=== PATIENT | female | born 1950 | race Caucasian/White ===

== ENCOUNTER 2022-01-13 07:43 | Day surgery (SDC) | payer MEDICARE ==
[2022-01-13] MEDS ORDERED: Decadron 4 MG INJ IV ONE (07:44)
[2022-01-13] MEDS ORDERED: XYLOCAINE-MPF 1% 5ML SDV IJ ONE (07:44)
[2022-01-13] MEDS ORDERED: Depo-Medrol 40 MG/ML IM ONE (07:44)
[2022-01-13] MEDS ORDERED: Marcaine Mpf 0.5% Vial 30 Ml IJ ONE (07:44)
[2022-01-13] MEDS ORDERED: DIPRIVAN 200 MG/20 ML IV ONE (08:36)
[2022-01-13] MEDS ORDERED: Lactated Ringers 1,000 ML IV ONE (09:06)
--- NOTE | 2022-01-13 09:48 | XRAY ---
Indication: Right SI joint and right piriformis injection. Intraoperative fluoroscopy provided for 20 seconds. Initial lateral digital spot image submitted for interpretation demonstrates posterior new tip projecting over the presumed right SI joint. Second digital spot image demonstrates posterior needle tip projecting over the right piriformis muscle with small amount of contrast injected for needle tip placement. Correlate with intraoperative findings/report.
--- NOTE | 2022-01-13 12:27 | XRAY ---
20 seconds of fluoroscopy was used in surgery for a right SI and right piriformis injections.
== END 2022-01-13 08:56 | disposition home or self-care (01) ==
LOC: SDC-PAIN 07:43
PROVIDERS: ATTEND Psychiatry & Neurology Pain Medicine
DX: M46.1 Sacroiliitis, not elsewhere classified (principal); M79.18 Myalgia, other site; E11.9 Type 2 diabetes mellitus without complications; Z79.899 Other long term (current) drug therapy
CPT/HCPCS: 20552; 27096; 72170; 76942; 77002; 82947; G0260; 99100; J1030; J1100; J2704; Q9966

== ENCOUNTER 2022-02-03 06:51 | Day surgery (SDC) | payer MEDICARE ==
[2022-02-03] MEDS ORDERED: LIDOCAINE HCL 2% 100 MG/5 ML IJ ONE (06:52)
[2022-02-03] MEDS ORDERED: DIPRIVAN 200 MG/20 ML IV ONE (08:39)
[2022-02-03] MEDS ORDERED: Lactated Ringers 1,000 ML IV ONE (10:15)
--- NOTE | 2022-02-03 10:51 | XRAY ---
Indication: Bilateral L4-S1 MBB. Intraoperative fluoroscopy provided for 42 seconds. Single digital spot image submitted for interpretation demonstrates posterior needle tips projecting over the expected left and right L4-S1 nerve roots. Correlate with intraoperative findings/report. Incidental partially visualized bilateral L5-S1 posterior fusion hardware.
--- NOTE | 2022-02-03 11:36 | XRAY ---
42 seconds fluoroscopy time in surgery for bilateral L4-S1 MBB.
== END 2022-02-03 09:02 | disposition home or self-care (01) ==
LOC: SDC-PAIN 06:51
PROVIDERS: ATTEND Psychiatry & Neurology Pain Medicine
DX: M47.816 Spondylosis without myelopathy or radiculopathy, lumbar region (principal); E11.9 Type 2 diabetes mellitus without complications; Z79.899 Other long term (current) drug therapy
CPT/HCPCS: 64493; 64494; 72020; 77002; 82947; J2704

== ENCOUNTER 2022-03-03 07:42 | Day surgery (SDC) | payer MEDICARE ==
[2022-03-03] MEDS ORDERED: Marcaine Mpf 0.5% Vial 30 Ml IJ ONE (07:43)
[2022-03-03] MEDS ORDERED: Lactated Ringers 1,000 ML IV ONE (15:05)
[2022-03-03] MEDS ORDERED: DIPRIVAN 200 MG/20 ML IV ONE (15:10)
--- NOTE | 2022-03-03 21:52 | XRAY ---
Indication: Bilateral L4-S1 MBB. Intraoperative fluoroscopy provided for 47 seconds. Single digital spot image submitted for interpretation demonstrates posterior needle tips projecting over the expected left and right L4-S1 nerve roots. Correlate with intraoperative findings/report. Incidental partially visualized bilateral L5-S1 posterior fusion hardware.
--- NOTE | 2022-03-03 22:11 | XRAY ---
47 seconds of fluoroscopy was used in surgery for a bilateral L4-S1 MBB.
== END 2022-03-03 15:36 ==
LOC: SDC-PAIN 07:42
PROVIDERS: ATTEND Psychiatry & Neurology Pain Medicine
DX: M47.816 Spondylosis without myelopathy or radiculopathy, lumbar region (principal); E11.9 Type 2 diabetes mellitus without complications; Z79.899 Other long term (current) drug therapy
CPT/HCPCS: 64493; 64494; 72020; 77002; 82947; J2704

== ENCOUNTER 2022-04-07 07:32 | Day surgery (SDC) | payer MEDICARE ==
[2022-04-07] MEDS ORDERED: Depo-Medrol 40 MG/ML IM ONE (07:33)
[2022-04-07] MEDS ORDERED: XYLOCAINE-MPF 1% 5ML SDV IJ ONE (07:33)
[2022-04-07] MEDS ORDERED: BUPIVACAINE 0.5% VIAL IJ ONE (07:33)
[2022-04-07] MEDS ORDERED: Xylocaine-Mpf 2% 5 Ml Vial ONE (08:58)
--- NOTE | 2022-04-07 10:31 | XRAY ---
Indication: Left L4-S1 RFA. Intraoperative fluoroscopy provided for 48 seconds. 3 digital spot images submitted for interpretation demonstrates posterior needle tips projecting over the expected left L4-S1 nerve roots. Correlate with intraoperative findings/report. Incidental bilateral L4-L5 posterior fusion hardware.
[2022-04-07] MEDS ORDERED: Lactated Ringers 1,000 ML IV ONE (10:33)
--- NOTE | 2022-04-07 10:52 | XRAY ---
48 seconds of fluoroscopy was used in surgery for a left L4-S1 RFA.
== END 2022-04-07 09:27 | disposition home or self-care (01) ==
LOC: SDC-PAIN 07:32
PROVIDERS: ATTEND Psychiatry & Neurology Pain Medicine
DX: M47.816 Spondylosis without myelopathy or radiculopathy, lumbar region (principal); E11.9 Type 2 diabetes mellitus without complications; Z79.899 Other long term (current) drug therapy
CPT/HCPCS: 64635; 64636; 72100; 77002; 82947; 99100; J1030

== ENCOUNTER 2022-04-14 06:50 | Day surgery (SDC) | payer MEDICARE ==
[2022-04-14] MEDS ORDERED: BUPIVACAINE 0.5% VIAL IJ ONE (06:51)
[2022-04-14] MEDS ORDERED: LIDOCAINE HCL 1% 50 MG/5 ML VL PF IJ ONE (06:51)
[2022-04-14] MEDS ORDERED: Depo-Medrol 40 MG/ML IM ONE (06:51)
[2022-04-14] MEDS ORDERED: DIPRIVAN 200 MG/20 ML IV ONE (07:58)
[2022-04-14] MEDS ORDERED: Lactated Ringers 1,000 ML IV ONE (14:22)
--- NOTE | 2022-04-14 18:15 | XRAY ---
Indication: Right L4-S1 RFA. Intraoperative fluoroscopy provided for 36 seconds. 3 digital spot image submitted for interpretation demonstrates posterior needle tips projecting over the expected right L4-S1 nerve roots. Correlate with intraoperative findings/report. Incidental incompletely visualized bilateral lumbosacral fusion hardware and epidural stimulator device/leads.
--- NOTE | 2022-04-14 18:31 | XRAY ---
36 seconds of fluoroscopy was used in surgery for a right L4-S1 RFA.
== END 2022-04-14 08:45 | disposition home or self-care (01) ==
LOC: SDC-PAIN 06:50
PROVIDERS: ATTEND Psychiatry & Neurology Pain Medicine
DX: M47.816 Spondylosis without myelopathy or radiculopathy, lumbar region (principal); E11.9 Type 2 diabetes mellitus without complications; I10 Essential (primary) hypertension; Z79.899 Other long term (current) drug therapy
CPT/HCPCS: 64635; 64636; 72100; 77002; 82947; 99100; J1030; J2001; J2704

== ENCOUNTER 2022-09-01 07:30 | Day surgery (SDC) | payer MEDICARE ==
[2022-09-01] MEDS ORDERED: BUPIVACAINE 0.5% VIAL IJ ONE (07:31)
[2022-09-01] MEDS ORDERED: Depo-Medrol 40 MG/ML IM ONE (07:31)
[2022-09-01] MEDS ORDERED: DIPRIVAN 200 MG/20 ML IV ONE (08:45)
--- NOTE | 2022-09-01 10:05 | XRAY ---
Indication: Bilateral SI joint injection. Intraoperative fluoroscopy provided for 21 seconds. 4e digital spot image submitted for interpretation demonstrates posterior needle tip projecting over the left and right SI joint. Correlate with intraoperative findings/report. Incidental incompletely visualized bilateral lumbosacral junction posterior fusion hardware and posterior epidural stimulator device.
--- NOTE | 2022-09-01 10:06 | XRAY ---
21 seconds of fluoroscopy was used in surgery for a bilateral sacroiliac joint injection.
[2022-09-01] MEDS ORDERED: Lactated Ringers 1,000 ML IV ONE (13:58)
== END 2022-09-01 09:13 | disposition home or self-care (01) ==
LOC: SDC-PAIN 07:30
PROVIDERS: ATTEND Psychiatry & Neurology Pain Medicine
DX: M46.1 Sacroiliitis, not elsewhere classified (principal); E11.9 Type 2 diabetes mellitus without complications; Z79.899 Other long term (current) drug therapy
CPT/HCPCS: 01992; 27096; 72202; 77002; 82947; 99100; G0260; J1030; J2704

== ENCOUNTER 2023-03-02 07:55 | Day surgery (SDC) | payer MEDICARE ==
[2023-03-02] MEDS ORDERED: BUPIVACAINE 0.5% VIAL IJ ONE (07:56)
[2023-03-02] MEDS ORDERED: Depo-Medrol 40 MG/ML IM ONE (07:56)
[2023-03-02] MEDS ORDERED: DIPRIVAN 200 MG/20 ML IV ONE (09:44)
--- NOTE | 2023-03-02 10:49 | XRAY ---
Indication: Left SI joint and left greater trochanter bursa injection. Intraoperative fluoroscopy provided for 24 seconds. 4 digital spot image obtained prone submitted for interpretation demonstrates posterior needle tip projecting over the left SI joint. Second needle tip lateral to left greater trochanter with small amount of contrast injected for needle tip placement. Correlate with intraoperative findings/report. Incidental incompletely visualized lumbosacral junction fusion hardware and epidural stimulator device.
[2023-03-02] MEDS ORDERED: Lactated Ringers 1,000 ML IV ONE (11:15)
--- NOTE | 2023-03-02 11:59 | XRAY ---
24 seconds of fluoroscopy was used in surgery for a left sacroiliac joint and left greater trochanteric bursa injection.
== END 2023-03-02 10:15 | disposition home or self-care (01) ==
LOC: SDC-PAIN 07:55
PROVIDERS: ATTEND Psychiatry & Neurology Pain Medicine
DX: M46.1 Sacroiliitis, not elsewhere classified (principal); M16.12 Unilateral primary osteoarthritis, left hip; E11.9 Type 2 diabetes mellitus without complications; Z79.899 Other long term (current) drug therapy
CPT/HCPCS: 20610; 27096; 73501; 77002; 82947; G0260; J1030; J2704; Q9966

== ENCOUNTER 2023-05-11 07:30 | Day surgery (SDC) | payer MEDICARE ==
[2023-05-11] MEDS ORDERED: Depo-Medrol 40 MG/ML IM ONE (07:31)
[2023-05-11] MEDS ORDERED: Sodium Chloride 0.9(Preservative Free) 10 ML IJ ONE (07:31)
[2023-05-11] MEDS ORDERED: DIPRIVAN 200 MG/20 ML IV ONE (08:48)
--- NOTE | 2023-05-11 09:50 | XRAY ---
Indication: Left L4-S1 trans-foraminal SIMIN. Intraoperative fluoroscopy provided for 1 minute 24 seconds. 8 digital spot image submitted for interpretation demonstrates posterior needle tips projecting over the expected left L4 and L5 nerve roots. Small amount of contrast injected for needle placement. Correlate with intraoperative findings/report. Incidental bilateral lumbosacral fusion hardware.
--- NOTE | 2023-05-11 11:36 | XRAY ---
1 minute and 24 seconds of fluoroscopy was used in surgery for a left L4-S1 transforaminal SIMIN.
[2023-05-11] MEDS ORDERED: Lactated Ringers 1,000 ML IV ONE (11:42)
== END 2023-05-11 09:30 | disposition home or self-care (01) ==
LOC: SDC-PAIN 07:30
PROVIDERS: ATTEND Psychiatry & Neurology Pain Medicine
DX: M54.16 Radiculopathy, lumbar region (principal); E11.9 Type 2 diabetes mellitus without complications; Z79.899 Other long term (current) drug therapy
CPT/HCPCS: 64483; 64484; 72100; 77003; 82947; J1030; J2704; Q9966

== ENCOUNTER 2023-07-13 07:20 | Day surgery (SDC) | payer MEDICARE ==
[2023-07-13] MEDS ORDERED: BUPIVACAINE 0.5% VIAL IJ ONE (07:21)
[2023-07-13] MEDS ORDERED: Depo-Medrol 40 MG/ML IM ONE (07:21)
[2023-07-13] MEDS ORDERED: DIPRIVAN 200 MG/20 ML IV ONE (09:11)
--- NOTE | 2023-07-13 10:12 | XRAY ---
Indication: Bilateral SI joint injection. Intraoperative fluoroscopy provided for 18 seconds. 4 digital spot image submitted for interpretation demonstrates posterior needle tip projecting over the left and right SI joint. Correlate with intraoperative findings/report. Incidental incompletely visualized bilateral lumbosacral junction fusion hardware and posterior epidural stimulator device.
--- NOTE | 2023-07-13 10:44 | XRAY ---
18 seconds of fluoroscopy was used in surgery for a bilateral sacroiliac joint injection.
[2023-07-13] MEDS ORDERED: Lactated Ringers 1,000 ML IV ONE (15:28)
== END 2023-07-13 09:41 | disposition home or self-care (01) ==
LOC: SDC-PAIN 07:20
PROVIDERS: ATTEND Psychiatry & Neurology Pain Medicine
DX: M46.1 Sacroiliitis, not elsewhere classified (principal); E11.9 Type 2 diabetes mellitus without complications; Z79.899 Other long term (current) drug therapy
CPT/HCPCS: 01992; 27096; 72202; 77002; 82947; 99100; G0260; J1030; J2704

== ENCOUNTER 2023-08-10 07:18 | Day surgery (SDC) | payer MEDICARE ==
[2023-08-10] MEDS ORDERED: LIDOCAINE HCL 2% 100 MG/5 ML IJ ONE (07:19)
[2023-08-10] MEDS ORDERED: Depo-Medrol 40 MG/ML IM ONE (07:19)
[2023-08-10] MEDS ORDERED: DIPRIVAN 200 MG/20 ML IV ONE (09:11)
[2023-08-10] MEDS ORDERED: Lactated Ringers 1,000 ML IV ONE (09:33)
--- NOTE | 2023-08-10 10:10 | XRAY ---
Indication: Bilateral L3-L5 MBB. Intraoperative fluoroscopy provided for 54 seconds. Single digital spot image submitted for interpretation demonstrates posterior needle tips projecting over the expected left and right L3-L5 nerve roots. Correlate with intraoperative findings/report. Incidental bilateral L5-S1 fusion hardware.
--- NOTE | 2023-08-10 11:34 | XRAY ---
54 seconds of fluoroscopy was used in surgery for a bilateral L3-L5 MBB.
== END 2023-08-10 09:50 | disposition home or self-care (01) ==
LOC: SDC-PAIN 07:18
PROVIDERS: ATTEND Psychiatry & Neurology Pain Medicine
DX: M47.816 Spondylosis without myelopathy or radiculopathy, lumbar region (principal); E11.9 Type 2 diabetes mellitus without complications; Z79.899 Other long term (current) drug therapy
CPT/HCPCS: 64493; 64494; 72020; 77002; 82947; J1030; J2704

== ENCOUNTER 2023-09-07 08:44 | Day surgery (SDC) | payer MEDICARE ==
[2023-09-07] MEDS ORDERED: BUPIVACAINE 0.5% VIAL IJ ONE (08:45)
[2023-09-07] MEDS ORDERED: Depo-Medrol 40 MG/ML IM ONE (08:45)
[2023-09-07] MEDS ORDERED: DIPRIVAN 200 MG/20 ML IV ONE (10:32)
--- NOTE | 2023-09-07 10:46 | XRAY ---
Indication: Bilateral L4-S1 MBB. Intraoperative fluoroscopy provided for 48 seconds. 3 digital spot images submitted for interpretation demonstrates posterior needle tips projecting over the expected left and right L4-S1 nerve roots. Correlate with intraoperative findings/report. Incidental bilateral L5-S1 fusion hardware
--- NOTE | 2023-09-07 10:48 | XRAY ---
48 seconds of fluoroscopy was used in surgery for a bilateral L4-S1 MBB.
[2023-09-07] MEDS ORDERED: Lactated Ringers 1,000 ML IV ONE (13:37)
== END 2023-09-07 10:41 | disposition home or self-care (01) ==
LOC: SDC-PAIN 08:44
PROVIDERS: ATTEND Psychiatry & Neurology Pain Medicine
DX: M47.816 Spondylosis without myelopathy or radiculopathy, lumbar region (principal); E11.9 Type 2 diabetes mellitus without complications
CPT/HCPCS: 64493; 64494; 72020; 77002; 82947; J1030; J2704

== ENCOUNTER 2023-11-02 06:41 | Day surgery (SDC) | payer MEDICARE ==
[2023-11-02] MEDS ORDERED: BUPIVACAINE 0.5% VIAL IJ ONE (06:42)
[2023-11-02] MEDS ORDERED: Depo-Medrol 40 MG/ML IM ONE (06:42)
[2023-11-02] MEDS ORDERED: DIPRIVAN 200 MG/20 ML IV ONE (08:25)
--- NOTE | 2023-11-02 10:13 | XRAY ---
Indication: Bilateral L3-L5 MBB. Intraoperative fluoroscopy provided for 55 seconds. 3 digital spot image submitted for interpretation demonstrates posterior needle tips projecting over the expected left and right L3-L5 nerve roots. Correlate with intraoperative findings/report. Incidental bilateral L5-S1 fusion hardware.
--- NOTE | 2023-11-02 10:21 | XRAY ---
55 seconds of fluoroscopy was used in surgery for a bilateral L3-L5 MBB.
[2023-11-02] MEDS ORDERED: Lactated Ringers 1,000 ML IV ONE (11:40)
== END 2023-11-02 09:08 | disposition home or self-care (01) ==
LOC: SDC-PAIN 06:41
PROVIDERS: ATTEND Psychiatry & Neurology Pain Medicine
DX: M47.816 Spondylosis without myelopathy or radiculopathy, lumbar region (principal); E11.9 Type 2 diabetes mellitus without complications
CPT/HCPCS: 64493; 64494; 72020; 77002; 82947; J1010; J2704; J1030

== ENCOUNTER 2024-02-08 07:25 | Day surgery (SDC) | payer MEDICARE ==
[2024-02-08] MEDS ORDERED: Sodium Chloride 0.9(Preservative Free) 10 ML IJ ONE (07:26)
[2024-02-08] MEDS ORDERED: Decadron 4 MG INJ IV ONE (07:26)
[2024-02-08] MEDS ORDERED: LIDOCAINE HCL 1% 50 MG/5 ML VL PF IJ ONE (07:26)
[2024-02-08] MEDS ORDERED: DIPRIVAN 200 MG/20 ML IV ONE ×2 (09:16→09:29)
--- NOTE | 2024-02-08 10:10 | XRAY ---
Indication: Left L4-S1 transforaminal SIMIN. Intraoperative fluoroscopy provided for 58 seconds. 8 digital spot image submitted for interpretation demonstrates posterior needle tips projecting over the expected left L4 and L5 nerve roots. Small amount of contrast injected for needle tip placement. Correlate with intraoperative findings/report. Incidental bilateral L5-S1 posterior fusion hardware and incompletely visualized epidural stimulator.
--- NOTE | 2024-02-08 10:12 | XRAY ---
Indication: Left piriformis injection. Intraoperative fluoroscopy provided for 21 seconds. Single digital spot image submitted for interpretation demonstrates posterior needle tip projecting over the left piriformis. Small amount of contrast injected for needle tip placement. Correlate with intraoperative findings/report. Incidental incompletely visualized lower lumbar fusion hardware.
--- NOTE | 2024-02-08 11:40 | XRAY ---
58 seconds of fluoroscopy was used in surgery for a left L4-S1 transforaminal SIMIN.
--- NOTE | 2024-02-08 11:40 | XRAY ---
21 seconds of fluoroscopy was used in surgery for a left piriformis injection.
[2024-02-08] MEDS ORDERED: Lactated Ringers 1,000 ML IV ONE (12:06)
== END 2024-02-08 10:00 | disposition home or self-care (01) ==
LOC: SDC-PAIN 07:25
PROVIDERS: ATTEND Psychiatry & Neurology Pain Medicine
DX: M54.16 Radiculopathy, lumbar region (principal); M79.18 Myalgia, other site; E11.9 Type 2 diabetes mellitus without complications
CPT/HCPCS: 20552; 64483; 64484; 72100; 72170; 77002; 77003; 82947; 99100; J1100; J2001; J2704; Q9966

== ENCOUNTER 2024-09-12 07:10 | Day surgery (SDC) | payer MEDICARE ==
[2024-09-12] MEDS ORDERED: Depo-Medrol 40 MG/ML IM ONE (07:11)
[2024-09-12] MEDS ORDERED: LIDOCAINE HCL 1% AMPUL 5 ML IJ ONE (07:11)
[2024-09-12] MEDS ORDERED: BUPIVACAINE 0.5% VIAL IJ ONE (07:11)
[2024-09-12] MEDS ORDERED: Lactated Ringers 500 ML IV ONE (07:58)
[2024-09-12] MEDS ORDERED: propofoL IV ONE (08:47)
--- NOTE | 2024-09-12 09:58 | XRAY ---
Indication: Left L3-L5 RFA. Intraoperative fluoroscopy provided for 21 seconds. 4 digital spot image submitted for interpretation demonstrates posterior needle tips projecting over expected left L3-L5 nerve roots. Correlate with intraoperative findings/report. Incidental bilateral L5 and S1 posterior fusion hardware and incompletely visualized epidural leads.
--- NOTE | 2024-09-12 10:01 | XRAY ---
21 seconds of fluoroscopy was used in surgery for a left L3-L5 RFA.
== END 2024-09-12 09:22 | disposition home or self-care (01) ==
LOC: SDC-PAIN 07:10
PROVIDERS: ATTEND Psychiatry & Neurology Pain Medicine
DX: M47.816 Spondylosis without myelopathy or radiculopathy, lumbar region (principal); E11.9 Type 2 diabetes mellitus without complications
CPT/HCPCS: 64635; 64636; 72100; 77002; 82947; 99100; J2704

== ENCOUNTER 2024-09-19 07:56 | Day surgery (SDC) | payer MEDICARE ==
[2024-09-19] MEDS ORDERED: methylPREDNISolone acetate IM ONE (07:57)
[2024-09-19] MEDS ORDERED: BUPIVACAINE 0.5% VIAL IJ ONE (07:57)
[2024-09-19] MEDS ORDERED: LIDOCAINE HCL 1% AMPUL 5 ML IJ ONE (07:57)
[2024-09-19] MEDS ORDERED: Lactated Ringers 500 ML IV ONE (09:05)
[2024-09-19] MEDS ORDERED: propofoL IV ONE (09:43)
--- NOTE | 2024-09-19 10:26 | XRAY ---
Indication: Right L3-L5 RFA. Intraoperative fluoroscopy provided for 22 second. 4 digital spot image submitted for interpretation demonstrates posterior needle tips projecting over expected right L3-L5 nerve roots. Correlate with intraoperative findings/report. Incidental bilateral L5-S1 posterior fusion hardware and incompletely visualized epidural leads
--- NOTE | 2024-09-19 10:30 | XRAY ---
22 seconds of fluoroscopy was used in surgery for a right L3-L5 RFA.
== END 2024-09-19 10:22 | disposition home or self-care (01) ==
LOC: SDC-PAIN 07:56
PROVIDERS: ATTEND Psychiatry & Neurology Pain Medicine
DX: M47.816 Spondylosis without myelopathy or radiculopathy, lumbar region (principal)
CPT/HCPCS: 64635; 64636; 72100; 77002; 99100; J1010; J2704

== ENCOUNTER 2024-10-11 07:12 | Day surgery (SDC) | payer MEDICARE ==
[2024-10-11] MEDS ORDERED: BUPIVACAINE 0.5% VIAL IJ ONE (07:13)
[2024-10-11] MEDS ORDERED: methylPREDNISolone acetate IM ONE (07:13)
[2024-10-11] MEDS ORDERED: propofoL IV ONE (08:59)
--- NOTE | 2024-10-11 11:09 | XRAY ---
Indication: Bilateral greater trochanter bursa injection. Intraoperative fluoroscopy provided for 16 seconds. 2 digital spot image submitted for interpretation demonstrates needle tips projecting lateral to left and right greater trochanters. Small amount of contrast injected for needle tip placement. Correlate with intraoperative findings/report.
--- NOTE | 2024-10-11 11:09 | XRAY ---
16 seconds of fluoroscopy was used in surgery for a bilateral greater trochanteric bursa injection.
== END 2024-10-11 09:33 | disposition home or self-care (01) ==
LOC: SDC-PAIN 07:12
PROVIDERS: ATTEND Psychiatry & Neurology Pain Medicine
DX: M70.62 Trochanteric bursitis, left hip (principal); M70.61 Trochanteric bursitis, right hip; E11.9 Type 2 diabetes mellitus without complications
CPT/HCPCS: 20610; 73521; 77002; 82947; J1010; J2704; Q9966